=== PATIENT | male | born 1950 | race Caucasian/White ===

== ENCOUNTER 2023-10-10 06:25 | Day surgery (SDC) | payer MEDICARE, BC ==
[2023-10-03 16:02] VITALS: BMI 23.9
[2023-10-03 16:58] LABS: Hematocrit 43.1 % (38.8-50.0); Hemoglobin 14.7 g/dL (13.5-17.5); Mean Corpuscular HGB CONC 34.1 g/dL (32.0-36.0); Mean Corpuscular Hemoglobin 31.3 pg (27.0-33.0); Mean Corpuscular Volume 91.7 fL (81.2-95.1); Platelet Count 161 10x3/uL (150-450); RBC Distribution Width 12.8 % (11.5-14.5); White Blood Cell (WBC) Count 5.6 10x3/uL (3.5-10.5)
[2023-10-03 17:18] LABS: Anion Gap 13 mmol/L (10-20); BUN (Urea Nitrogen) 36 mg/dL (8.4-25.7); Calc. Creatinine Clearance 38 mL/min (70-130); Calcium 9.5 mg/dL (7.8-10.44); Carbon Dioxide 28 mmol/L (23-31); Chloride 108 mmol/L (98-107); Estimated GFR 40; Glucose 113 mg/dL (83-110); Sodium 144 mmol/L (136-145)
[2023-10-03 17:19] LABS: INR-International Normal Ratio 1.1; Prothrombin Time 11.6 sec (9.5-12.1)
[2023-10-10] MEDS ORDERED: Lidocaine 1% (PF) 30 ML VIAL ONE (06:48)
[2023-10-10] MEDS ORDERED: Gentamicin 80 MG/2 ML VIAL ONE (06:48)
[2023-10-10] MEDS ORDERED: Clindamycin/D5W 900 mg/50 ml Premix Bag ONE (06:48)
[2023-10-10] MEDS ORDERED: Vancomycin (BATCH) 1.5 GM/300 ML BAG ONE (07:52)
[2023-10-10] MEDS ORDERED: Sevoflurane 250 ML INH ANEST BOTTLE ONE (08:16)
[2023-10-10] MEDS ORDERED: fentaNYL 50 mcg/mL 1 mL Vial ONE (08:22)
[2023-10-10] MEDS ORDERED: Ondansetron PF 4 MG/2 ML Vial ONE (08:22)
[2023-10-10] MEDS ORDERED: Lidocaine 1% PF 5 ML VIAL ONE (08:23)
[2023-10-10] MEDS ORDERED: PROPOFOL 20 ML ONE (08:23)
[2023-10-10] MEDS ORDERED: Midazolam HCl 2 mg/2 ml Vial ONE (08:28)
[2023-10-10] MEDS ORDERED: Dexamethasone 4 mg/ml Vial ONE (08:36)
[2023-10-10] MEDS ORDERED: PHENYLEPHRINE-NS 100 MCG/ML 10 ML SYRINGE ONE (08:46)
[2023-10-10] MEDS ORDERED: Iopamidol 370 76% 100 ML VIAL ONE (09:58)
== END 2023-10-10 15:00 | disposition home or self-care (01) ==
LOC: SDC 06:25
PROVIDERS: ATTEND Internal Medicine Cardiovascular Disease
PROC: 0JH606Z Insertion of Pacemaker, Dual Chamber into Chest Subcutaneous Tissue and Fascia, Open Approach (ICD-10-PCS; principal; 2023-10-10)
PROC: 02HL3JZ Insertion of Pacemaker Lead into Left Ventricle, Percutaneous Approach (ICD-10-PCS; 2023-10-10)
PROC: 02HK3JZ Insertion of Pacemaker Lead into Right Ventricle, Percutaneous Approach (ICD-10-PCS; 2023-10-10)
DX: I44.2 Atrioventricular block, complete (principal)
CPT/HCPCS: 33208; 33286; 71045; 80048; 85027; 85610; 93005; C1769; C1785; C1894; C1898 ×2; J1100; J1580; J2001; J2250; J2405; J2704; J3370; J3490; 93010; J3010